=== PATIENT | female | born 1970 | race African-American/Black ===

== ENCOUNTER 2016-09-10 23:10 | Emergency (ER) | payer SELFPAY ==
[~2016-09-10] VITALS: Ht 157.5 cm; Wt 86.0 kg
[~2016-09-10 23:10] MED LIST: ASPI325T PO; BENZ1TAB PO; DEPA500T3 PO; HALO5 PO; TRAZ100 PO
[2016-09-10 23:12] VITALS: BP 124/63; PULSE 82; RESP 16; TEMP 99; O2SAT 99
[2016-09-11] MEDS ORDERED: ONDANSETRON HCL 4 MG/2 ML VIAL IVP ONE
[2016-09-11] MEDS ORDERED: SODIUM CHLORIDE 0.9% FLUSH 10 ML FLUSH IV FLUSH PRN
[2016-09-11] MEDS ORDERED: MORPHINE SULFATE 4 MG/ML INJ IV PUSH ONE
[2016-09-11 00:25] VITALS: O2SAT 97
[2016-09-11] MEDS: SODIUM CHLOR 0.9% 1000 ML INJ 1,000 ML IV SCH ×2 (00:32→03:29)
--- NOTE | 2016-09-11 00:35 | RADRPT ---
EXAM DATE/TIME: 09/11/2016 00:06 [facility] COMPARISON: No previous studies available for comparison. INDICATIONS : Low mid abdomen pain for one week. MEDICAL HISTORY : Osteoarthritis. Cervical cancer SURGICAL HISTORY : Tubal ligation. section. ENCOUNTER: Initial ACUITY: 1 week PAIN SCORE: 10/10 LOCATION: Bilateral lower quadrant FINDINGS: Supine and upright views of the abdomen were performed. The abdominal bowel gas pattern is normal. No air fluid levels are seen. Round calcifications are seen in the pelvis likely related to phleboli ths. The visualized lower lungs are clear. No evidence of free intraperitoneal gas. The osseous str uctures are unremarkable. CONCLUSION: No acute disease. Elian Garcia MD on September 11, 2016 at 0:32 Board Certified Radiologist. This report was verified electronically.
--- NOTE | 2016-09-11 00:49 | PD ---
HPI Chief Complaint: Abdominal Pain Time Seen by Provider: 23:50 Travel History International Travel<30 days: No Contact w/Intl Traveler<30days: No Traveled to known affect area: No History of Present Illness HPI 46-year-old female here for evaluation of abdominal pain, back pain, nausea, and vomiting. The patient reports that symptoms of it going on for 1 week and started with back pain. Symptoms have been constant, however have been significantly worse today. She states she has been taking 2 Aleve per day to try to alleviate her pain, however this has not helped. No diarrhea. History of section and bilateral tubal ligation. No other abdominal surgeries. Emesis is clear. She denies fevers or chills. No chest pain or dyspnea. No IVDU. PFSH Past Medical History Asthma: Yes Blood Disorders: No Bipolar Disorder: Yes Cancer: Yes (cervical) Cardiovascular Problems: No Chemotherapy: No Diabetes: No Patient Takes Glucophage: No Diminished Hearing: No Endocrine: No Genitourinary: No Immune Disorder: No Musculoskeletal: No Neurologic: Yes Psychiatric: No Reproductive: Yes (Cervical CA) Respiratory: No Immunizations Current: Yes Radiation Therapy: No Seizures: Yes ?: Not Menopausal: No : 5 Para: 5 Tubal Ligation: Yes Past Surgical History Section: Yes (X 1) Social History Alcohol Use: No Tobacco Use: Yes (1/2PPD) Substance Use: Yes (pot) Allergies-Medications (Allergen,Severity, Reaction): Coded Allergies: Penicillin (Verified Allergy, Intermediate, Itching, 09/10/16) Reported Meds & Prescriptions Reported Meds & Active Scripts Active Review of Systems Except as stated in HPI: all other systems reviewed are Neg Physical Exam Narrative GENERAL: Well-developed, well-nourished, moderate distress secondary to abdominal pain. SKIN: Focused skin assessment warm/dry. No rash. HEAD: Atraumatic. Normocephalic. EYES: Pupils equal and round. No scleral icterus. No injection or drainage. ENT: Mucous membranes pink and moist. NECK: Trachea midline. No JVD. CARDIOVASCULAR: Regular rate and rhythm. No murmur appreciated. RESPIRATORY: No accessory muscle use. Clear to auscultation. Breath sounds equal bilaterally. GASTROINTESTINAL: Abdomen soft, nondistended. Moderate diffuse tenderness without peritoneal signs. Normal bowel sounds. MUSCULOSKELETAL: No obvious deformities. No clubbing. No cyanosis. No edema. No CVA tenderness. No midline vertebral step-off or tenderness. NEUROLOGICAL: Awake and alert. No obvious cranial nerve deficits. Motor grossly within normal limits. Normal speech. PSYCHIATRIC: Appropriate mood and affect; insight and judgment normal. Data Data Last Documented VS Vital Signs Date Time Temp Pulse Resp B/P Pulse Ox O2 Delivery O2 Flow Rate FiO2 09/11/16 00:25 97 Room Air 09/10/16 23:12 99.0 82 16 124/63 Orders Beta Hcg (Quant/Titer) (09/10/16 23:54) Complete Blood Count With Diff (09/10/16 23:54) Comprehensive Metabolic Panel (09/10/16 23:54) Lipase (09/10/16 23:54) Prothrombin Time / Inr (Pt) (09/10/16 23:54) Act Partial Throm Time (Ptt) (09/10/16 23:54) Urinalysis - C+S If Indicated (09/10/16 23:54) Abdomen, Flat & Upright (09/10/16 ) Ct Abd/Pel W Iv Contrast(Rout) (09/10/16 23:54) Iv Access Insert/Monitor (09/10/16 23:54) Ecg Monitoring (09/10/16 23:54) Oximetry (09/10/16 23:54) Morphine Inj (Morphine Inj) (09/11/16 00:00) Ondansetron Inj (Zofran Inj) (09/11/16 00:00) Sodium Chlor 0.9% 1000 Ml Inj (Ns 1000 M (09/10/16 23:54) Sodium Chloride 0.9% Flush (Ns Flush) (09/11/16 00:00) Labs Laboratory Tests Test 09/11/16 09/11/16 00:15 00:20 Urine Color LIGHT-YELLOW Urine Turbidity HAZY Urine pH 5.5 Urine Specific [place] 1.010 Urine Protein NEG mg/dL Urine Glucose (UA) NEG mg/dL Urine Ketones NEG mg/dL Urine Occult Blood MOD Urine Nitrite NEG Urine Bilirubin NEG Urine Urobilinogen LESS THAN 2.0 MG/DL Urine Leukocyte Esterase NEG Urine RBC LESS THAN 1 /hpf Urine WBC 1 /hpf Urine Squamous Epithelial 3 /hpf Cells Urine Renal Epithelial Cells <1 /hpf Urine Bacteria RARE /hpf Urine Mucus FEW /lpf Microscopic Urinalysis Comment CULT NOT INDICATED White Blood Count 11.1 TH/MM3 Red Blood Count 4.38 MIL/MM3 Hemoglobin 10.1 GM/DL Hematocrit 31.3 % Mean Corpuscular Volume 71.5 FL Mean Corpuscular Hemoglobin 23.1 PG Mean Corpuscular Hemoglobin 32.4 % Concent Red Cell Distribution Width 17.0 % Platelet Count 350 TH/MM3 Mean Platelet Volume 7.7 FL Neutrophils (%) (Auto) 69.2 % Lymphocytes (%) (Auto) 22.0 % Monocytes (%) (Auto) 7.4 % Eosinophils (%) (Auto) 0.9 % Basophils (%) (Auto) 0.5 % Neutrophils # (Auto) 7.7 TH/MM3 Lymphocytes # (Auto) 2.4 TH/MM3 Monocytes # (Auto) 0.8 TH/MM3 Eosinophils # (Auto) 0.1 TH/MM3 Basophils # (Auto) 0.1 TH/MM3 CBC Comment AUTO DIFF Prothrombin Time 11.2 SEC Prothromb Time International 1.0 RATIO Ratio Activated Partial 31.5 SEC Thromboplast Time Sodium Level 140 MEQ/L Potassium Level 3.3 MEQ/L Chloride Level 107 MEQ/L Carbon Dioxide Level 26.6 MEQ/L Anion Gap 6 MEQ/L Blood Urea Nitrogen 9 MG/DL Creatinine 0.70 MG/DL Estimat Glomerular Filtration 109 ML/MIN Rate Random Glucose 88 MG/DL Calcium Level 8.6 MG/DL Total Bilirubin 0.3 MG/DL Aspartate Amino Transf 9 U/L (AST/SGOT) Alanine Aminotransferase 20 U/L (ALT/SGPT) Alkaline Phosphatase 89 U/L Total Protein 7.9 GM/DL Albumin 3.5 GM/DL Lipase 207 U/L Human Chorionic Gonadotropin, LESS THAN 1 Quant MIU/ML [facility] Medical Decision Making Medical Screen Exam Complete: Yes Emergency Medical Condition: Yes Differential Diagnosis Pancreatitis, hepatobiliary disease, nephrolithiasis, pyelonephritis, ureterolithiasis, peptic ulcer disease, bowel perforation, appendicitis, colitis , , ectopic Narrative Course Vital signs show heart rate 82, blood pressure 124/63, pulse ox 99% on room air , oral temp of 99F. CBC shows WBC 11.1, hemoglobin 10.1, hematocrit 31.3, platelets 350. CMP is remarkable for potassium 3.3, otherwise unremarkable. Lipase is 207. Beta hCG is less than 1. UA shows moderate occult blood, hazy urine, rare bacteria, few mucus, negative leukocyte esterase, negative nitrites, not suggestive of UTI. At approximately 1:00 AM at the end of my shift the patient was signed out to my PA Dk Atkins who will follow up with CT abdomen pelvis and will disposition the patient. At this time the patient is resting comfortably and is feeling much better after receiving IV morphine and IV Zofran. Her repeat abdominal exam shows mild diffuse tenderness without peritoneal signs. Eric Lockett MD Sep 11, 2016 00:49
[2016-09-11 00:55] LABS: AUTOMATED NEUTROPHIL # 7.7 TH/MM3 (1.8-7.7); BASOPHIL # 0.1 TH/MM3 (0-0.2); BASOPHIL % 0.5 % (0.0-2.0); EOSINOPHIL # 0.1 TH/MM3 (0-0.4); EOSINOPHIL % 0.9 % (0.0-4.0); HEMATOCRIT 31.3 % (35.0-46.0); LYMPHOCYTE # 2.4 TH/MM3 (1.0-4.8); MEAN CELL VOLUME 71.5 FL (80.0-100.0); MEAN CORPUSCULAR HEMOGLOBIN 23.1 PG (27.0-34.0); MEAN CORPUSCULAR HGB CONC 32.4 % (32.0-36.0); MONO % 7.4 % (0.0-8.0); NEUT % 69.2 % (16.0-70.0); PLATELET COUNT 350 TH/MM3 (150-450); RED BLOOD COUNT 4.38 MIL/MM3 (4.00-5.30); WHITE BLOOD COUNT 11.1 TH/MM3 (4.0-11.0)
[2016-09-11 01:05] VITALS: BP 133/66; PULSE 65; RESP 16; O2SAT 98
[2016-09-11 01:08] LABS: ALT (GPT) 20 U/L (10-53); ANION GAP 6 MEQ/L (5-15); AST (GOT) 9 U/L (15-37); BICARBONATE 26.6 MEQ/L (21.0-32.0); BLOOD UREA NITROGEN 9 MG/DL (7-18); CHLORIDE 107 MEQ/L (98-107); GLOMERULAR FILTRATION RATE 109 ML/MIN (>89); POTASSIUM 3.3 MEQ/L (3.5-5.1); SODIUM (NA) 140 MEQ/L (136-145)
[2016-09-11 01:10] LABS: HEMO FLAGS AUTO DIFF
[2016-09-11 01:11] LABS: APTT (PATIENT) 31.5 SEC (24.3-30.1); PROTHROMBIN TIME - PATIENT 11.2 SEC (9.8-11.6)
[2016-09-11 01:12] LABS: ALKALINE PHOSPHATASE 89 U/L (45-117); BETA HCG QUANT LESS THAN 1 MIU/ML (0-5); TOTAL BILIRUBIN ADULT 0.3 MG/DL (0.2-1.0)
[2016-09-11 01:15] LABS: BACTERIA, URINE RARE /hpf; BLOOD, URINE MOD (NEG); COMMENT (UR) CULT NOT INDICATED; CULTURE IF INDICATED CULT NOT INDICATED; GLUCOSE,URINE NEG (NEG); KETONE, URINE NEG (NEG); MUCUS URINE FEW /lpf (OCC); NITRITE,URINE NEG (NEG); PH, URINE 5.5 (5.0-8.5); RENAL EPITHELIAL CELLS <1 /hpf; SQUAMOUS EPITHELIAL CELL URINE 3 /hpf (0-5); URINE COLOR LIGHT-YELLOW (YELLW/STRAW)
[2016-09-11] MEDS ORDERED: IOHEXOL 350 MG/ML 10 ML VIAL (for RAD DIAG) IV ONE (01:34)
--- NOTE | 2016-09-11 01:52 | RADRPT ---
EXAM DATE/TIME: 09/11/2016 01:29 [facility] COMPARISON: No previous studies available for comparison. INDICATIONS : Abdominal pain. IV CONTRAST: 95 cc Omnipaque 350 (iohexol) IV ORAL CONTRAST: No oral contrast ingested. RADIATION DOSE: 14.75 CTDIvol (mGy) MEDICAL HISTORY : Seizures. Cervical and uterine cancer, Asthma SURGICAL HISTORY : Tubal ligation. ENCOUNTER: Initial ACUITY: 1 day PAIN SCALE: 6/10 LOCATION: abdomen TECHNIQUE: Volumetric scanning of the abdomen and pelvis was performed. Using automated exposure control and ad justment of the mA and/or kV according to patient size, radiation dose was kept as low as reasonably achievable to obtain optimal diagnostic quality images. FINDINGS: LOWER LUNGS: The visualized lower lungs are clear. LIVER: There is decreased density in the liver. There are several hypodensities seen in the liver measuring up to 1 cm. These are nonspecific. There is no dilation of the biliary tree. No calcified gallstones . SPLEEN: Normal size without lesion. PANCREAS: Within normal limits. KIDNEYS: Normal in size and shape. There is no mass, stone or hydronephrosis. ADRENAL GLANDS: Within normal limits. VASCULAR: There is no aortic aneurysm. BOWEL/MESENTERY: There are scattered colonic diverticula. There is mild inflammatory change at the junction between th e descending and sigmoid portions of the colon. No abscess is seen. ABDOMINAL WALL: Within normal limits. RETROPERITONEUM: There is no lymphadenopathy. BLADDER: No wall thickening or mass. REPRODUCTIVE: There are several uterine masses measuring up to 6 cm likely related to leiomyomas. There is a comple x lesion with fat density seen at the left adnexa measuring 2.4 cm likely representing a dermoid. INGUINAL: There is no lymphadenopathy or hernia. MUSCULOSKELETAL: Within normal limits for patient age. CONCLUSION: 1. Mild acute inflammatory change around the colon at the junction between the descending and sigmoid portions of the colon with scattered diverticula consistent with diverticulitis. 2. Multiple uterine masses likely representing leiomyomas. 3. 2.4 cm complex left adnexal mass likely related to a dermoid given the fat density. 4. Hepatic steatosis with multiple small masses. These are nonspecific but statistically, they likely represent cysts or hemangiomas. Elian Garcia MD on September 11, 2016 at 1:43 Board Certified Radiologist. This report was verified electronically.
[2016-09-11 01:59] LABS: SCAN/DIFF AUTO DIFF CONFIRMED
--- NOTE | 2016-09-11 02:03 | PD ---
Physical Exam Time Seen by Provider: 01:55 Data Data Last Documented VS Vital Signs Date Time Temp Pulse Resp B/P Pulse Ox O2 Delivery O2 Flow Rate FiO2 09/11/16 00:25 97 Room Air 09/10/16 23:12 99.0 82 16 124/63 Orders Beta Hcg (Quant/Titer) (09/10/16 23:54) Complete Blood Count With Diff (09/10/16 23:54) Comprehensive Metabolic Panel (09/10/16 23:54) Lipase (09/10/16 23:54) Prothrombin Time / Inr (Pt) (09/10/16 23:54) Act Partial Throm Time (Ptt) (09/10/16 23:54) Urinalysis - C+S If Indicated (09/10/16 23:54) Abdomen, Flat & Upright (09/10/16 ) Ct Abd/Pel W Iv Contrast(Rout) (09/10/16 23:54) Iv Access Insert/Monitor (09/10/16 23:54) Ecg Monitoring (09/10/16 23:54) Oximetry (09/10/16 23:54) Morphine Inj (Morphine Inj) (09/11/16 00:00) Ondansetron Inj (Zofran Inj) (09/11/16 00:00) Sodium Chlor 0.9% 1000 Ml Inj (Ns 1000 M (09/10/16 23:54) Sodium Chloride 0.9% Flush (Ns Flush) (09/11/16 00:00) Iohexol 350 Inj (Omnipaque 350 Inj) (09/11/16 01:34) Labs Laboratory Tests Test 09/11/16 09/11/16 00:15 00:20 Urine Color LIGHT-YELLOW Urine Turbidity HAZY Urine pH 5.5 Urine Specific [place] 1.010 Urine Protein NEG mg/dL Urine Glucose (UA) NEG mg/dL Urine Ketones NEG mg/dL Urine Occult Blood MOD Urine Nitrite NEG Urine Bilirubin NEG Urine Urobilinogen LESS THAN 2.0 MG/DL Urine Leukocyte Esterase NEG Urine RBC LESS THAN 1 /hpf Urine WBC 1 /hpf Urine Squamous Epithelial 3 /hpf Cells Urine Renal Epithelial Cells <1 /hpf Urine Bacteria RARE /hpf Urine Mucus FEW /lpf Microscopic Urinalysis Comment CULT NOT INDICATED White Blood Count 11.1 TH/MM3 Red Blood Count 4.38 MIL/MM3 Hemoglobin 10.1 GM/DL Hematocrit 31.3 % Mean Corpuscular Volume 71.5 FL Mean Corpuscular Hemoglobin 23.1 PG Mean Corpuscular Hemoglobin 32.4 % Concent Red Cell Distribution Width 17.0 % Platelet Count 350 TH/MM3 Mean Platelet Volume 7.7 FL Neutrophils (%) (Auto) 69.2 % Lymphocytes (%) (Auto) 22.0 % Monocytes (%) (Auto) 7.4 % Eosinophils (%) (Auto) 0.9 % Basophils (%) (Auto) 0.5 % Neutrophils # (Auto) 7.7 TH/MM3 Lymphocytes # (Auto) 2.4 TH/MM3 Monocytes # (Auto) 0.8 TH/MM3 Eosinophils # (Auto) 0.1 TH/MM3 Basophils # (Auto) 0.1 TH/MM3 CBC Comment AUTO DIFF Differential Comment AUTO DIFF CONFIRMED Prothrombin Time 11.2 SEC Prothromb Time International 1.0 RATIO Ratio Activated Partial 31.5 SEC Thromboplast Time Sodium Level 140 MEQ/L Potassium Level 3.3 MEQ/L Chloride Level 107 MEQ/L Carbon Dioxide Level 26.6 MEQ/L Anion Gap 6 MEQ/L Blood Urea Nitrogen 9 MG/DL Creatinine 0.70 MG/DL Estimat Glomerular Filtration 109 ML/MIN Rate Random Glucose 88 MG/DL Calcium Level 8.6 MG/DL Total Bilirubin 0.3 MG/DL Aspartate Amino Transf 9 U/L (AST/SGOT) Alanine Aminotransferase 20 U/L (ALT/SGPT) Alkaline Phosphatase 89 U/L Total Protein 7.9 GM/DL Albumin 3.5 GM/DL Lipase 207 U/L Human Chorionic Gonadotropin, LESS THAN 1 Quant MIU/ML [facility] Medical Record Reviewed: Yes Supervised Visit with KHADIJAH: No Narrative Course I assumed care of this patient pending imaging studies and lab work. Please see previous provider's notes for complete history of present illness. Briefly this is a 46-year-old female who has had abdominal pain and nausea for one week. On examination she has generalized mild tenderness to palpation without guarding. She received morphine prior to my examination and this helped with her pain significantly. CT of the abdomen reveals mild diverticulitis. White blood cell count is mildly elevated 11.1. Potassium mildly low. Otherwise her lab work is essentially unremarkable. She is afebrile, not tachycardic, the plan would be to treat the patient had an outpatient with oral ciprofloxacin and Flagyl. She' ll be given Zofran for nausea and Lortab for pain. Discussed signs and symptoms that would warrant returning to the emergency room. She is stable for discharge. She was given a dose of IV Cipro and Flagyl here. Diagnosis Primary Impression: Diverticulitis Qualified Code: K57.92 - Diverticulitis of intestine without perforation or abscess without bleeding, unspecified part of intestinal tract Additional Instruction: Medication as prescribed. Stay well hydrated well-nourished. Follow-up closely with primary care and return for any emergent medical conditions. Med/Other Pt SpecificInfo: Prescription(s) given Scripts Ondansetron (Zofran)4 Mg Tab4 Mg PO Q6HR PRN (NAUSEA OR VOMITING) #20 TAB Ref 0 Prov:Jayjay Muñiz MD 09/11/16 Metronidazole (Flagyl)500 Mg [id number] Mg PO QID 10 Days Ref 0 Prov:Jayjay Muñiz MD 09/11/16 Ciprofloxacin 500 Mg [id number] Mg PO BID 10 Days Ref 0 Prov:Jayjay Muñiz MD 09/11/16 Hydrocodone-Acetaminophen (Lortab)5-325 Mg Tab1 Tab PO Q6H PRN (PAIN) #15 TAB Ref 0 Prov:Jayjay Muñiz MD 09/11/16 Disposition: 01 DISCHARGE HOME Condition: Stable Dk Atkins Sep 11, 2016 02:03
[2016-09-11] MEDS ORDERED: HYDR-3533 PO (02:04)
[2016-09-11] MEDS ORDERED: METR-1 PO (02:05)
[2016-09-11] MEDS ORDERED: ZOFR4TAB PO (02:05)
[2016-09-11] MEDS ORDERED: CIPR500T2 PO (02:05)
[2016-09-11] MEDS ORDERED: metroNIDAZOLE 500 MG INJ 100 ML IV ONE (02:15)
[2016-09-11] MEDS ORDERED: POTASSIUM CHLORIDE 20 MEQ CONTROLLED RELEASE TAB PO ONE (02:15)
[2016-09-11] MEDS ORDERED: CIPROFLOXACIN 400 MG PREMIX 200 ML IV ONE (02:15)
== END 2016-09-11 05:01 | disposition home or self-care (01) ==
LOC: NEPD 23:10 → NEPE 09-11 05:01
DX: K57.92 Diverticulitis of intestine, part unspecified, without perforation or abscess without bleeding (principal); M54.9 Dorsalgia, unspecified; R11.2 Nausea with vomiting, unspecified; F17.200 Nicotine dependence, unspecified, uncomplicated; Z87.09 Personal history of other diseases of the respiratory system; Z86.59 Personal history of other mental and behavioral disorders; Z85.41 Personal history of malignant neoplasm of cervix uteri; Z86.69 Personal history of other diseases of the nervous system and sense organs
CPT/HCPCS: 74020; 74177; 80053; 81001; 83690; 84702; 85025; 85610; 85730; 96374; 96375; 99284; J0744; J2270; J2405; J7030; Q9967

== ENCOUNTER 2017-06-16 16:52 | Observation (INO) | payer SELFPAY ==
[~2017-06-16] VITALS: Ht 167.6 cm; Wt 90.0 kg
[~2017-06-16 16:52] MED LIST changes: -ASPI325T PO; -BENZ1TAB PO; +CIPR500T2 PO; -DEPA500T3 PO; -HALO5 PO; +HYDR-3533 PO; +METR-1 PO; -TRAZ100 PO; +ZOFR4TAB PO
[2017-06-16] MEDS ORDERED: SODIUM CHLORIDE 0.9% FLUSH 10 ML FLUSH IVF PRN (17:00)
--- NOTE | 2017-06-16 17:01 | PD ---
HPI Chief Complaint: Neuro Symptoms/ Deficits Time Seen by Provider: 17:00 Travel History International Travel<30 days: No Contact w/Intl Traveler<30days: No Traveled to known affect area: No History of Present Illness HPI 46-year-old female came to the emergency room brought in by EMS as a stroke alert. However this was told upon EMS arrival to the emergency room. Patient was complaining of left side upper extremity and lower extremity pain and moving because of the pain. She also was stammering. She was holding her arm flexed and flinching upon touching it when EMS tried to move her from the stretcher to the hospital stretcher. Patient does have significant psych history. Vital signs were stable. Patient is not on any blood thinners. [facility] Past Medical History Narrative Medical List of her past medical, surgical, social and family history is reviewed from the nursing note. Asthma: Yes Blood Disorders: No Bipolar Disorder: Yes Cancer: Yes (cervical) Cardiovascular Problems: No Chemotherapy: No Diabetes: No Diminished Hearing: No Endocrine: No Genitourinary: No Immune Disorder: No Musculoskeletal: No Neurologic: Yes Psychiatric: No Reproductive: Yes (Cervical CA) Respiratory: No Immunizations Current: Yes Radiation Therapy: No Seizures: Yes Menopausal: No : 5 Para: 5 Tubal Ligation: Yes Past Surgical History Section: Yes (X 1) Social History Alcohol Use: No Tobacco Use: Yes (1/2PPD) Substance Use: Yes (pot) Allergies-Medications (Allergen,Severity, Reaction): Coded Allergies: penicillin G (Unverified Allergy, Intermediate, Itching, 01/18/17) Comments List of allergies reviewed from the nursing note. Reported Meds & Prescriptions Reported Meds & Active Scripts Active Reported Buspirone (Buspirone HCl) 5 Mg Tab 5 Mg PO BID Narrative Medication List of her home medications reviewed from the nursing note. Review of Systems Except as stated in HPI: all other systems reviewed are Neg Musculoskeletal: Positive: Pain Physical Exam Narrative GENERAL: Awake, alert, anxious, moderate distress SKIN: Focused skin assessment warm/dry. HEAD: Atraumatic. Normocephalic. EYES: Pupils equal and round. No scleral icterus. No injection or drainage. ENT: No nasal bleeding or discharge. Mucous membranes pink and moist. NECK: Trachea midline. No JVD. CARDIOVASCULAR: Regular rate and rhythm. No murmur appreciated. RESPIRATORY: No accessory muscle use. Clear to auscultation. Breath sounds equal bilaterally. GASTROINTESTINAL: Abdomen soft, non-tender, nondistended. Hepatic and splenic margins not palpable. MUSCULOSKELETAL: No obvious deformities. No clubbing. No cyanosis. No edema. NEUROLOGICAL: Awake and alert. No obvious cranial nerve deficits. Patient refuses to move her left upper and lower extremity except for some little jerky motions. Good tone. Patient is complaining of pain in the left upper extremity upon movement. She has a stammering speech PSYCHIATRIC: Appropriate mood and affect; insight and judgment normal. Data Data Last Documented VS Vital Signs Date Time Temp Pulse Resp B/P (MAP) Pulse Ox O2 Delivery O2 Flow Rate FiO2 06/16/17 17:13 70 22 100 Room Air 06/16/17 17:12 06/16/17 17:10 98.5 Orders Orders Electrocardiogram (06/16/17 17:00) Prothrombin Time / Inr (Pt) (06/16/17 17:00) Complete Blood Count With Diff (06/16/17 17:00) Basic Metabolic Panel (Bmp) (06/16/17 17:00) Creatine Kinase (Cpk) (06/16/17 17:00) Drug Screen, Random Urine (06/16/17 17:00) Troponin I (06/16/17 17:00) Urinalysis - C+S If Indicated (06/16/17 17:00) Ct Brain W/O Iv Contrast(Rout) (06/16/17 17:00) Chest, Single Ap (06/16/17 17:00) Ecg Monitoring (06/16/17 17:00) Iv Access Insert/Monitor (06/16/17 17:00) Oximetry (06/16/17 17:00) Sodium Chloride 0.9% Flush (Ns Flush) (06/16/17 17:00) Lorazepam Inj (Ativan Inj) (06/16/17 17:15) Mri Brain W/O Contrast (06/16/17 ) Mra Brain W/O Contrast (Cow) (06/16/17 ) Mri C Spine W/O Contrast (06/16/17 ) Urine Culture (06/16/17 18:39) Alprazolam (Xanax) (06/16/17 19:45) Admit Order (Ed Use Only) (06/16/17 19:43) Labs Laboratory Tests Test 06/16/17 17:05 06/16/17 18:39 White Blood Count 9.8 TH/MM3 Red Blood Count 4.21 MIL/MM3 Hemoglobin 10.2 GM/DL Hematocrit 31.7 % Mean Corpuscular Volume 75.3 FL Mean Corpuscular Hemoglobin 24.3 PG Mean Corpuscular Hemoglobin Concent 32.3 % Red Cell Distribution Width 17.8 % Platelet Count 427 TH/MM3 Mean Platelet Volume 7.5 FL Neutrophils (%) (Auto) 53.6 % Lymphocytes (%) (Auto) 27.8 % Monocytes (%) (Auto) 16.3 % Eosinophils (%) (Auto) 1.8 % Basophils (%) (Auto) 0.5 % Neutrophils # (Auto) 5.2 TH/MM3 Lymphocytes # (Auto) 2.7 TH/MM3 Monocytes # (Auto) 1.6 TH/MM3 Eosinophils # (Auto) 0.2 TH/MM3 Basophils # (Auto) 0.1 TH/MM3 CBC Comment DIFF FINAL Differential Comment Prothrombin Time 10.6 SEC Prothromb Time International Ratio 1.0 RATIO Blood Urea Nitrogen 10 MG/DL Creatinine 0.78 MG/DL Random Glucose 78 MG/DL Calcium Level 8.2 MG/DL Sodium Level 140 MEQ/L Potassium Level 3.8 MEQ/L Chloride Level 109 MEQ/L Carbon Dioxide Level 24.3 MEQ/L Anion Gap 7 MEQ/L Estimat Glomerular Filtration Rate 97 ML/MIN Hemoglobin A1c 5.7 % Total Creatine Kinase 106 U/L Troponin I LESS THAN 0.02 NG/ML Urine Color YELLOW Urine Turbidity HAZY Urine pH 5.5 Urine Specific [place] 1.015 Urine Protein NEG mg/dL Urine Glucose (UA) NEG mg/dL Urine Ketones NEG mg/dL Urine Occult Blood TRACE Urine Nitrite NEG Urine Bilirubin NEG Urine Urobilinogen LESS THAN 2.0 MG/DL Urine Leukocyte Esterase NEG Urine RBC LESS THAN 1 /hpf Urine WBC 1 /hpf Urine Squamous Epithelial Cells 5 /hpf Urine Bacteria RARE /hpf Urine Mucus FEW /lpf Microscopic Urinalysis Comment CATH-CULTURE IND Urine Opiates Screen NEG Urine Barbiturates Screen NEG Urine Amphetamines Screen NEG Urine Benzodiazepines Screen NEG Urine Cocaine Screen NEG Urine Cannabinoids Screen POS MDM Medical Decision Making Medical Screen Exam Complete: Yes Emergency Medical Condition: Yes Medical Record Reviewed: Yes Interpretation(s) Twelve-lead EKG was reviewed by me. Normal sinus rhythm, normal axis, nonspecific ST-T wave changes. Heart rate of 64 bpm. Differential Diagnosis TIA, psychosomatic disorder Narrative Course 7:26 PM case was discussed with the neurologist Dr. Obando. I explained to him the reason I have not called a stroke alert since patient has good tone and her issues seem more psychological. Patient was given 1 mg of Ativan and soon after which I was told by the nurse that she was moving all 4 extremities freely. She had something similar a few months ago where she was complaining of right-sided weakness. MRI of the brain was negative. He wanted an MRI and MRA of the brain and cervical spine done today. This has been ordered. Her CT scan of the head and blood work is within normal limits. Her urine drug screen is pending. Dr. Obando would prefer the patient to be admitted and he would consult. Procedures EKG Prior to Arrival: No Physician Communication Physician Communication Dr. Obando Diagnosis Primary Impression: TIA (transient ischemic attack) Qualified Codes: G45.9 - Transient cerebral ischemic attack, unspecified Additional Impression: possible psychosomatic disorder Admitting Information Admitting Physician Requests: Observation Scripts Ibuprofen (Ibuprofen) 400 Mg Tab 400 MG PO Q6H Y for MIGRAINE HEADACHE, #21 TAB 0 Refills Prov: Keysha Manning PA-C 06/17/17 Berry Wasserman MD Jun 16, 2017 17:01
[2017-06-16 17:10] VITALS: BP 152/62; PULSE 72; RESP 18; TEMP 98.5; O2SAT 99
[2017-06-16 17:12] VITALS: RESP 18; O2SAT 100
[2017-06-16] MEDS ORDERED: LORazepam 2 MG/ML VIAL IV PUSH ONE (17:15)
[2017-06-16 17:30] LABS: AUTOMATED NEUTROPHIL # 5.2 TH/MM3 (1.8-7.7); BASOPHIL # 0.1 TH/MM3 (0-0.2); BASOPHIL % 0.5 % (0.0-2.0); EOSINOPHIL # 0.2 TH/MM3 (0-0.4); EOSINOPHIL % 1.8 % (0.0-4.0); HEMATOCRIT 31.7 % (35.0-46.0); HEMOGLOBIN 10.2 GM/DL (11.6-15.3); LYMPH % 27.8 % (9.0-44.0); LYMPHOCYTE # 2.7 TH/MM3 (1.0-4.8); MEAN CELL VOLUME 75.3 FL (80.0-100.0); MEAN CORPUSCULAR HEMOGLOBIN 24.3 PG (27.0-34.0); MEAN CORPUSCULAR HGB CONC 32.3 % (32.0-36.0); MEAN PLATELET VOLUME 7.5 FL (7.0-11.0); MONO % 16.3 % (0.0-8.0); MONOCYTE # 1.6 TH/MM3 (0-0.9); NEUT % 53.6 % (16.0-70.0); PLATELET COUNT 427 TH/MM3 (150-450); RED BLOOD COUNT 4.21 MIL/MM3 (4.00-5.30); RED CELL DISTRIBUTION WIDTH 17.8 % (11.6-17.2); WHITE BLOOD COUNT 9.8 TH/MM3 (4.0-11.0)
--- NOTE | 2017-06-16 17:36 | RADRPT ---
EXAM DATE/TIME: 06/16/2017 17:15 [facility] COMPARISON: No previous studies available for comparison. INDICATIONS : Shortness of breath. MEDICAL HISTORY : Seizures. Cervical and uterine cancer, Asthma SURGICAL HISTORY : Tubal ligation. ENCOUNTER: Initial ACUITY: 1 day PAIN SCORE: 0/10 LOCATION: Bilateral chest FINDINGS: A single view of the chest demonstrates the lungs to be symmetrically aerated without evidence of mas s, infiltrate or effusion. The cardiomediastinal contours are unremarkable. Osseous structures are intact. CONCLUSION: No acute disease. Kailash Borges MD on June 16, 2017 at 17:33 Board Certified Radiologist. This report was verified electronically.
--- NOTE | 2017-06-16 17:38 | RADRPT ---
EXAM DATE/TIME: 06/16/2017 17:14 [facility] COMPARISON: CT BRAIN W/O CONTRAST, March 11, 2016, 14:46. INDICATIONS : Right sided facial droop. RADIATION DOSE: 56.78 CTDIvol (mGy) MEDICAL HISTORY : Seizures. Umana's palsy, cervical cancer. SURGICAL HISTORY : Tubal ligation. ENCOUNTER: Initial ACUITY: 1 day PAIN SCALE: 0/10 LOCATION: cranial TECHNIQUE: Multiple contiguous axial images were obtained of the head. Using automated exposure control and adj ustment of the mA and/or kV according to patient size, radiation dose was kept as low as reasonably a chievable to obtain optimal diagnostic quality images. DICOM format image data is available electro nically for review and comparison. FINDINGS: CEREBRUM: The ventricles are normal for age. No evidence of midline shift, mass lesion, hemorrhage or acute in farction. No extra-axial fluid collections are seen. POSTERIOR FOSSA: The cerebellum and brainstem are intact. The 4th ventricle is midline. The cerebellopontine angle i s unremarkable. EXTRACRANIAL: The visualized portion of the orbits is intact. SKULL: The calvaria is intact. No evidence of skull fracture. CONCLUSION: Negative noncontrast head CT with no evidence of hemorrhage or acute infarction. Kailash Borges MD on June 16, 2017 at 17:35 Board Certified Radiologist. This report was verified electronically.
[2017-06-16 17:44] LABS: PROTHROMBIN TIME - PATIENT 10.6 SEC (9.8-11.6)
[2017-06-16 17:48] LABS: BICARBONATE 24.3 MEQ/L (21.0-32.0); BLOOD UREA NITROGEN 10 MG/DL (7-18); CALCIUM 8.2 MG/DL (8.5-10.1); CHLORIDE 109 MEQ/L (98-107); CREATININE 0.78 MG/DL (0.50-1.00); GLOMERULAR FILTRATION RATE 97 ML/MIN (>89); GLUCOSE,RANDOM 78 MG/DL (74-106); SODIUM (NA) 140 MEQ/L (136-145)
[2017-06-16 17:50] LABS: TROPONIN I LESS THAN 0.02 NG/ML (0.02-0.05)
[2017-06-16] MEDS ORDERED: BUSP5TAB PO (19:00)
[2017-06-16 19:04] LABS: BACTERIA, URINE RARE /hpf; BILIRUBIN, URINE NEG (NEG); BLOOD, URINE TRACE (NEG); GLUCOSE,URINE NEG (NEG); KETONE, URINE NEG (NEG); MUCUS URINE FEW /lpf (OCC); NITRITE,URINE NEG (NEG); PH, URINE 5.5 (5.0-8.5); SQUAMOUS EPITHELIAL CELL URINE 5 /hpf (0-5); URINE COLOR YELLOW (YELLW/STRAW); URINE LEUKOCYTE ESTERASE NEG (NEG)
[2017-06-16] MEDS ORDERED: ALPRAZolam 0.5 MG TAB PO ONE (19:45)
[2017-06-16] MEDS ORDERED: GLUCAGON 1 MG/ML VIAL OTHER PRN (19:45)
[2017-06-16] MEDS ORDERED: DEXTROSE 50% IN WATER 50 ML VIAL(D50) IV PUSH PRN (19:45)
[2017-06-16] MEDS ORDERED: SODIUM CHLORIDE 0.9% FLUSH 10 ML FLUSH IV FLUSH PRN (19:45)
--- NOTE | 2017-06-16 20:43 | RADRPT ---
EXAM DATE/TIME: 06/16/2017 20:01 [facility] COMPARISON: MRI BRAIN W/O CONTRAST, June 16, 2017, 20:01. MRA BRAIN W/O CONTRAST, March 11, 2016, 17:01. INDICATIONS : CVA. MEDICAL HISTORY : Seizures. Cervical cancer. Uterine cancer. SURGICAL HISTORY : section. Tubal ligation. Cervix. ENCOUNTER: Subsequent ACUITY: 1 day PAIN SCORE: 3/10 LOCATION: cranial Please note a normal MRA of the brain does not entirely exclude the possibility of a small aneurysm, nor the possibility of distal intracranial vessel disease. TECHNIQUE: 3D time of flight MRA was performed. Source images, multiplanar STS MIP, and 3D volume MIP reconstru ctions were reviewed. FINDINGS: There is excellent visualization of the major intracranial arteries out to the second-order branch ve ssels. There is no evidence for aneurysm, vessel truncation or stenosis, and no evidence for vascula r malformation. CONCLUSION: Normal MRA of the brain. Elian Monroy MD on June 16, 2017 at 20:40 Board Certified Radiologist. This report was verified electronically.
--- NOTE | 2017-06-16 20:44 | RADRPT ---
EXAM DATE/TIME: 06/16/2017 20:01 [facility] COMPARISON: MRI BRAIN W/O CONTRAST, March 11, 2016, 17:01. INDICATIONS : CVA. Seizures. MEDICAL HISTORY : Seizures. Cervical cancer. Uterine cancer. SURGICAL HISTORY : section. Tubal ligation. Cervix. ENCOUNTER: Initial ACUITY: 1 day PAIN SCORE: 0/10 LOCATION: Head. TECHNIQUE: Multiplanar, multisequence MRI of the brain was performed without contrast. FINDINGS: CEREBRUM: The ventricles are normal for age. No evidence of midline shift, mass lesion, hemorrhage or acute in farction. No extraaxial fluid collections are seen. The pituitary gland and suprasellar cistern are normal in configuration. WHITE MATTER: No significant signal abnormalities are seen in the white matter. POSTERIOR FOSSA: The cerebellum and brainstem are intact. The 4th ventricle is midline. The cerebellopontine angle is unremarkable. The cerebellar tonsils are normal in position. DIFFUSION IMAGING: No focal areas of restricted diffusion are seen. No evidence of acute infarction. EXTRACRANIAL: The visualized portions of the orbits and paranasal sinuses are unremarkable. CONCLUSION: Normal noncontrast MRI of the brain. Elian Monroy MD on June 16, 2017 at 20:41 Board Certified Radiologist. This report was verified electronically.
[2017-06-16 20:57] VITALS: BP 92/65; PULSE 64; RESP 20; TEMP 98.2; O2SAT 99
--- NOTE | 2017-06-16 20:58 | RADRPT ---
EXAM DATE/TIME: 06/16/2017 20:01 [facility] COMPARISON: No previous studies available for comparison. INDICATIONS : Radiculopathy. MEDICAL HISTORY : Seizures. Cervical cancer. Uterine cancer. SURGICAL HISTORY : section. Tubal ligation. Cervix. ENCOUNTER: Subsequent ACUITY: 1 day PAIN SCORE: 3/10 LOCATION: neck TECHNIQUE: Multiplanar, multisequence MRI examination of the cervical spine was performed. FINDINGS: VERTEBRAE: Normal vertebral body height. Homogeneous marrow signal. ALIGNMENT: No evidence of subluxation. CORD: Normal configuration and signal. POST FOSSA: The cerebellar tonsils are normal in position. C2-C3: The thecal sac has a normal configuration. There is no evidence of disc herniation or spinal canal s tenosis. The neural foramina are patent bilaterally. C3-C4: The thecal sac has a normal configuration. There is no evidence of disc herniation or spinal canal s tenosis. The neural foramina are patent bilaterally. C4-C5: The thecal sac has a normal configuration. There is no evidence of disc herniation or spinal canal s tenosis. The neural foramina are patent bilaterally. C5-C6: The thecal sac has a normal configuration. There is no evidence of disc herniation or spinal canal s tenosis. The neural foramina are patent bilaterally. C6-C7: The thecal sac has a normal configuration. There is no evidence of disc herniation or spinal canal s tenosis. The neural foramina are patent bilaterally. C7-T1: The thecal sac has a normal configuration. There is no evidence of disc herniation or spinal canal s tenosis. The neural foramina are patent bilaterally. CONCLUSION: Normal MRI of the cervical spine. Elian Monroy MD on June 16, 2017 at 20:55 Board Certified Radiologist. This report was verified electronically.
[2017-06-16] MEDS: SODIUM CHLORIDE 0.9% FLUSH 10 ML FLUSH IV FLUSH SCH (21:00)
[2017-06-17] VITALS (8 sets, daily range): BP systolic 95–109; BP diastolic 55–61; PULSE 61–72; RESP 18; TEMP 97–98.2; O2SAT 97–99
--- NOTE | 2017-06-17 05:11 | HHI.HP ---
HPI Service [facility] Primary Care Physician Unknown Admission Diagnosis TIA Diagnoses: Travel History International Travel<30 Days: No Contact w/Intl Traveler <30 Da: No Traveled to Known Affected Are: No History of Present Illness History from patient, ER physician communication, and review of medical records. Patient reported that about 3 days ago, she was having severe headaches. She reports the headaches and wants to the left side of her face and then the left arm pain. She reports she was having trouble speaking "when my head really hurt" She states that the last time this happened it was on the right side. She is actually referring to her previous hospitalization events. She reports she then told her mom about this who told her to call 911. Patient is somewhat of a poor historian. She claims that she is also having trouble speaking. However when asked whether she has trouble finding words versus an understanding words versus pronouncing words, she is not able to tell you the answer. She is actually noted to have her face grimaced on her right side with her eyebrows traced. She refers to that as her face drooping. She was also speaking with speech that is more consistent of forceful pronunciation. However it is worth noting that during the interview, when distracted, her speech became normal and her face grimaced or frown was gone. As per ER report, ambulance personnel brought patient as a stroke alert. Review of Systems Except as stated in HPI: all other systems reviewed are Neg Past Family Social History Past Medical History asthma cervical cancer - s/p surgery, no chemo no radiation anxiety/depression hospitalization in 03/21 with similar symptoms except with right sided symptoms - workup negative denies htn/dm/cad/chf/afib/copd/kidney issues/blood clots/thyroid issues Past Surgical History cervical cancer surgery x 2 c section Allergies: Coded Allergies: penicillin G (Unverified Allergy, Intermediate, Itching, 01/18/17) Family History mom- dm, htn Social History 6- 7 cigarrttes a day marijuana occasionally Physical Exam Vital Signs Vital Signs Date Time Temp Pulse Resp B/P (MAP) Pulse Ox O2 Delivery O2 Flow Rate FiO2 1/12/18 01:12 98.1 72 18 95/59 (71) 98 06/16/17 20:57 98.2 64 20 92/65 (74) 99 06/16/17 20:51 06/16/17 17:13 70 22 100 Room Air 06/16/17 17:12 18 100 Room Air 06/16/17 17:10 98.5 72 18 152/62 (92) 99 Room Air Physical Exam GENERAL: This is a well-nourished, well-developed patient, in no apparent distress. SKIN: No rashes, ecchymoses or lesions. Cool and dry. HEAD: Atraumatic. Normocephalic. No temporal or scalp tenderness. EYES: No scleral icterus. No injection or drainage. ENT: Nose without bleeding, purulent drainage or septal hematoma. Airway patent. NECK: Trachea midline. No JVD . Supple, nontender, no meningeal signs. CARDIOVASCULAR: Regular rate and rhythm without murmurs, gallops, or rubs. RESPIRATORY: Clear to auscultation. Breath sounds equal bilaterally. No wheezes , rales, or rhonchi. GASTROINTESTINAL: Abdomen soft, non-tender, nondistended. No guarding. MUSCULOSKELETAL: Extremities without clubbing, cyanosis, or edema. No calf tenderness. NEUROLOGICAL: Awake and alert. Cranial nerves II through XII intact. Motor and sensory grossly within normal limits. Normal speech. Laboratory Laboratory Tests Test 06/16/17 17:05 06/16/17 18:39 White Blood Count 9.8 Red Blood Count 4.21 Hemoglobin 10.2 Hematocrit 31.7 Mean Corpuscular Volume 75.3 Mean Corpuscular Hemoglobin 24.3 Mean Corpuscular Hemoglobin Concent 32.3 Red Cell Distribution Width 17.8 Platelet Count 427 Mean Platelet Volume 7.5 Neutrophils (%) (Auto) 53.6 Lymphocytes (%) (Auto) 27.8 Monocytes (%) (Auto) 16.3 Eosinophils (%) (Auto) 1.8 Basophils (%) (Auto) 0.5 Neutrophils # (Auto) 5.2 Lymphocytes # (Auto) 2.7 Monocytes # (Auto) 1.6 Eosinophils # (Auto) 0.2 Basophils # (Auto) 0.1 CBC Comment DIFF FINAL Differential Comment Prothrombin Time 10.6 Prothromb Time International Ratio 1.0 Blood Urea Nitrogen 10 Creatinine 0.78 Random Glucose 78 Calcium Level 8.2 Sodium Level 140 Potassium Level 3.8 Chloride Level 109 Carbon Dioxide Level 24.3 Anion Gap 7 Estimat Glomerular Filtration Rate 97 Total Creatine Kinase 106 Troponin I LESS THAN 0.02 Urine Color YELLOW Urine Turbidity HAZY Urine pH 5.5 Urine Specific [place] 1.015 Urine Protein NEG Urine Glucose (UA) NEG Urine Ketones NEG Urine Occult Blood TRACE Urine Nitrite NEG Urine Bilirubin NEG Urine Urobilinogen LESS THAN 2.0 Urine Leukocyte Esterase NEG Urine RBC LESS THAN 1 Urine WBC 1 Urine Squamous Epithelial Cells 5 Urine Bacteria RARE Urine Mucus FEW Microscopic Urinalysis Comment CATH-CULTURE IND Urine Opiates Screen NEG Urine Barbiturates Screen NEG Urine Amphetamines Screen NEG Urine Benzodiazepines Screen NEG Urine Cocaine Screen NEG Urine Cannabinoids Screen POS Date/Time Source Procedure Growth Status 06/16/17 18:39 Urine Catheterized Urine Urine Culture Pending Received Result Diagram: 06/16/17 1705 06/16/17 1705 Imaging Last [address] 06/16/17 1700 Signed Impressions: Service Date/Time: June 17:14 - CONCLUSION: Negative noncontrast head CT with no evidence of hemorrhage or acute infarction. Kailash Borges MD Chest X-Ray 06/16/17 1700 Signed Impressions: Service Date/Time: June 17:15 - CONCLUSION: No acute disease. Kailash Borges MD Head Magnetic Resonance Angiography 06/16/17 0000 Signed Impressions: Service Date/Time: June 20:01 - CONCLUSION: Normal MRA of the brain. Elian Monroy MD Cervical Spine MRI 06/16/17 0000 Signed Impressions: Service Date/Time: June 20:01 - CONCLUSION: Normal MRI of the cervical spine. Elian Monroy MD Brain MRI 06/16/17 0000 Signed Impressions: Service Date/Time: June 20:01 - CONCLUSION: Normal noncontrast MRI of the brain. MD Og Lara VTE Risk Assessment Caprini VTE Risk Assessment: Mod/High Risk (score >= 2) Caprini Risk Assessment Model Point Value = 1 Point Value = 2 Point Value = 3 Point Value = 5 Age 41-60 Minor surgery BMI > 25 kg/m2 Swollen legs Varicose veins or History of unexplained or recurrent spontaneous Oral contraceptives or hormone replacement Sepsis (< 1 month) Serious lung disease, including pneumonia (< 1 month) Abnormal pulmonary function Acute myocardial infarction Congestive heart failure (< 1 month) History of inflammatory bowel disease Medical patient at bed rest Age 61-74 Arthroscopic surgery Major open surgery (> 45 min) Laparoscopic surgery (> 45 min) Malignancy Confined to bed (> 72 hours) Immobilizing plaster cast Central venous access Age >= 75 History of VTE Family history of VTE Factor V Leiden Prothrombin [id number] Lupus anticoagulant Anticardiolipin antibodies Elevated serum homocysteine Heparin-induced thrombocytopenia Other congenital or acquired thrombophilia Stroke (< 1 month) Elective arthroplasty Hip, pelvis, or leg fracture Acute spinal cord injury (< 1 month) Prophylaxis Regimen Total Risk Factor Score Risk Level Prophylaxis Regimen 0-1 Low Early ambulation 2 Moderate Order ONE of the following: *Sequential Compression Device (SCD) *Heparin 5000 units SQ BID 3-4 Higher Order ONE of the following medications: *Heparin 5000 units SQ TID *Enoxaparin/Lovenox 40 mg SQ daily (WT < 150 kg, CrCl > 30 mL/min) *Enoxaparin/Lovenox 30 mg SQ daily (WT < 150 kg, CrCl > 10-29 mL/min) *Enoxaparin/Lovenox 30 mg SQ BID (WT < 150 kg, CrCl > 30 mL/min) AND/OR *Sequential Compression Device (SCD) 5 or more Highest Order ONE of the following medications: *Heparin 5000 units SQ TID (Preferred with Epidurals) *Enoxaparin/Lovenox 40 mg SQ daily (WT < 150 kg, CrCl > 30 mL/min) *Enoxaparin/Lovenox 30 mg SQ daily (WT < 150 kg, CrCl > 10-29 mL/min) *Enoxaparin/Lovenox 30 mg SQ BID (WT < 150 kg, CrCl > 30 mL/min) AND *Sequential Compression Device (SCD) Assessment and Plan Assessment and Plan Impression: Possible TIA. Was called a stroke alert by EMS possible psychogenic symptoms headaches - likely migraines asthma cervical cancer - s/p surgery, no chemo no radiation anxiety/depression hospitalization in 03/21 with similar symptoms except with right sided symptoms - workup negative Plan: Patient's case was discussed with neurologist on-call by ER physician. Per neurology, MRIs and MRA studies were done. Personally reviewed all imaging studies including MRI of the brain, MRA of the brain. No evidence of acute infarct/edema/mass. Cervical spine MRI reviewed- Patient is explained of the above studies. Start patient on toradol for headaches control Resume home meds once the medications are known from her mother. Patient's prior hospitalization reviewed. Echocardiogram and carotid sono reports reviewed. DVT prophylaxis with SCD. This patient could be likely discharged today if okay with neurologist Discussed Condition With patient, ER MD, nursing staff Casey Iniguez MD Jun 17, 2017 05:11
[2017-06-17] MEDS ORDERED: KETOROLAC TROMETHAMINE 10 MG TAB PO PRN (05:15)
[2017-06-17 07:48] LABS: CHOLESTEROL/ HDL RATIO 3.75 RATIO; HDL CHOLESTEROL 44.8 MG/DL (40.0-60.0)
--- NOTE | 2017-06-17 10:13 | HHI.PR ---
Subjective Remarks Follow up for headache, right facial droop. The patient reports her headache has improved, now only located in the occipital region, rated 5/10. Denies any photophobia, blurred/double vision, or nausea/vomiting. She says her speech has improved but still having occasional slurred speech. She still believes she has right facial droop but denies any numbness or tingling. Denies any unilateral extremity numbness or weakness. Denies any other medical complaints including no fevers/chills, lightheadedness, dizziness, chest pain, palpitations, shortness of breath, abdominal pain, diarrhea, or urinary complaints. Objective Vitals Vital Signs Date Time Temp Pulse Resp B/P (MAP) Pulse Ox O2 Delivery O2 Flow Rate FiO2 06/17/17 08:00 97.1 70 18 105/56 (72) 98 06/17/17 05:43 98.1 70 18 99/56 (70) 99 06/17/17 05:33 68 06/17/17 01:12 98.1 72 18 95/59 (71) 98 06/16/17 20:57 98.2 64 20 92/65 (74) 99 06/16/17 20:51 06/16/17 17:13 70 22 100 Room Air 06/16/17 17:12 18 100 Room Air 06/16/17 17:10 98.5 72 18 152/62 (92) 99 Room Air Result Diagram: 06/16/17 1705 06/16/17 1705 Imaging Last Impressions Head CT 06/16/17 1700 Signed Impressions: Service Date/Time: June 17:14 - CONCLUSION: Negative noncontrast head CT with no evidence of hemorrhage or acute infarction. Kailash Borges MD Chest X-Ray 06/16/17 1700 Signed Impressions: Service Date/Time: June 17:15 - CONCLUSION: No acute disease. Kailash Borges MD Head Magnetic Resonance Angiography 06/16/17 0000 Signed Impressions: Service Date/Time: June 20:01 - CONCLUSION: Normal MRA of the brain. Elian Monroy MD Cervical Spine MRI 06/16/17 0000 Signed Impressions: Service Date/Time: June 20:01 - CONCLUSION: Normal MRI of the cervical spine. Elian Monroy MD Brain MRI 06/16/17 0000 Signed Impressions: Service Date/Time: June 20:01 - CONCLUSION: Normal noncontrast MRI of the brain. Elian Monroy MD Objective Remarks GENERAL: Well-nourished, well-developed middle aged AA female patient in NAD. SKIN: Warm and dry. No rash. HEENT: Normocephalic. Atraumatic. Pupils equal and round. Mucous membranes pink and moist. NECK: Supple. Trachea midline. CARDIOVASCULAR: Regular rate and rhythm. S1, S2 noted. No murmur appreciated. RESPIRATORY: No accessory muscle use. Clear to auscultation. Breath sounds equal bilaterally. GASTROINTESTINAL: Abdomen soft, non-tender, nondistended. Normoactive bowel sounds x4. MUSCULOSKELETAL: No obvious deformities. Extremities without clubbing, cyanosis , or edema. NEUROLOGICAL: Awake and alert. No obvious cranial nerve deficits. Motor grossly within normal limits. 5/5 muscle strength in bilateral upper and lower extremities. Normal but forced speech, only one episode of slurred speech when patient trying to say the word "slurred", however rest of the conversation unremarkable. Bilateral facial, upper, and lower extremity sensation equal and intact. Asymmetrical brow raise with some flattening on the right, however then she is able to close eyes tightly bilaterally, facial exam very inconsistent. Asymmetric smile with flattening of right nasolabial fold however no tongue deviation. It is noted that with distraction throughout conversation, the patient does not demonstrate right facial droop or any speech deficit. Medications and IVs Current Medications Medications (Trade) Dose Ordered Sig/Carmen Route Start Time Stop Time Status Last Admin (NS Flush) 2 ml BID IV FLUSH 06/16/17 21:00 (NS Flush) 2 ml UNSCH PRN IV FLUSH 06/16/17 19:45 (D50w (Vial) Inj) 50 ml UNSCH PRN IV PUSH 06/16/17 19:45 (Glucagon Inj) 1 mg UNSCH PRN OTHER 06/16/17 19:45 (Toradol) 10 mg Q6H PRN PO 06/17/17 05:15 06/22/17 05:14 A/P Problem List: (1) Headache ICD Code: R51 - Headache (2) TIA (transient ischemic attack) ICD Code: G45.9 - Transient cerebral ischemic attack, unspecified Status: Acute Assessment and Plan 46-year-old female with history of asthma, cervical cancer s/p resection (no chemo/radiation), anxiety, depression, presents with a 3 day history of headache and now right facial droop. Of note, patient had hospitalization in for similar complaints with negative work up. Possible TIA: presented as stroke alert via EMS. Rule out TIA/CVA. Possible psychogenic symptoms vs complicated migraine. Exam very inconsistent with no obvious focal deficit. -Head CT, Brain MRI/MRA, and C-Spine MRI images reviewed, all unremarkable -Monitor neuro checks, NIHSS -Consult PT/OT/ST -Consult neurology for further recommendations Headaches: patient reports recurrently headaches, lately almost every day. Not associated with photophobia or nausea/vomiting. -IV Toradol prn headache -headache improving today Asthma: chronic, not in exacerbation -continue to monitor Anxiety/Depression: chronic -awaiting RN to update med rec DVT Prophylaxis: teds/SCDs Discharge Planning 1250hrs: Discussed with neurologist Dr. Madrid. Possibly hemiplegic migraine, now resolved. Cleared for discharge from neurology standpoint. Recommended tylenol or ibuprofen for headache relief, and follow up with neurologist Dr. Vance. Will discharge home. Discharge patient to home Condition on discharge: Improved Regular Diet as tolerated Ad Alayna activity Rx written: ibuprofen 400mg q6h prn headache Follow-up with primary care physician and neurologist Dr. Vance Attending Statement patient was seen and examined today. presented with headache. imaging studies as noted above. neurology consulted. rest of assessment and plan as noted above. Problem Qualifiers (1) TIA (transient ischemic attack): Qualified Codes: G45.9 - Transient cerebral ischemic attack, unspecified Keysha Manning PA-C Jun 17, 2017 10:13 Sourav Angeol MD Jun 17, 2017 13:34
[2017-06-17] MEDS: SODIUM CHLORIDE 0.9% FLUSH 10 ML FLUSH IV FLUSH SCH (11:47)
[2017-06-17] MEDS ORDERED: TRAZ50TA12 PO (11:58)
[2017-06-17] MEDS ORDERED: SERT-129 PO (11:58)
[2017-06-17] MEDS ORDERED: BUSP15TA PO (11:58)
[2017-06-17] MEDS ORDERED: TRAZ1TAB14 PO (12:12)
[2017-06-17] MEDS ORDERED: DIVA500T3 PO ×2 (12:14)
[2017-06-17] MEDS ORDERED: IBUP1TAB5 PO (12:53)
--- NOTE | 2017-06-17 12:58 | HHI.DCPOC ---
Discharge Care Plan Diagnosis: (1) Hemiplegic migraine (2) Headache Goals to Promote Your Health * To prevent worsening of your condition and complications * To maintain your health at the optimal level Directions to Meet Your Goals Take your medications as prescribed Follow your dietary instruction Follow activity as directed Keep your appointments as scheduled Take your immunizations and boosters as scheduled If your symptoms worsen call your PCP, if no PCP go to Urgent Care Center or Emergency Room Smoking is Dangerous to Your Health. Avoid second hand smoke Call the 24-hour hour crisis hotline for domestic abuse at Keysha Manning PA-C Jun 17, 2017 12:58
--- NOTE | 2017-06-17 14:31 | MB ---
cc: RAVEN MULTANI MD DATE OF CONSULTATION 06/17/2017 REASON FOR CONSULTATION Possible TIA. HISTORY OF PRESENT ILLNESS Ms. Theodore Cruz is a 46-year-old -Citizen Of [place] female who reported three days ago she was having severe headaches, mainly on the left side of her face, and she endorses trouble speaking which she states whenever her headache hurts. She states that she had a previous headache with right-sided weakness previously and a previous hospitalization. Dr. Vance of neurology saw her and he recommended aspirin. All her work-up neurologic work-up was negative. She occasionally had facial grimaces and eyelid flutter during the encounter. When I saw her the patient states that she is back to her normal self, no more weakness or facial droop. As per the PA who provided much of the history the patient was having facial weakness which was inconsistent and abnormal neurologic exam which was also inconsistent. The patient states that she has those headaches. She denies these are migraine headaches and does not follow up with a neurologist. REVIEW OF SYSTEMS A 12-point review of systems is negative except for what is stated in the HPI. PAST MEDICAL HISTORY 1. Asthma. 2. Cervical cancer, status post surgery. 3. Anxiety. 4. Depression. 5. Previous headache followed by weakness with negative neurologic investigation. PAST SURGICAL HISTORY 1. Cervical cancer surgery. 2. section. ALLERGIES PENICILLIN. FAMILY HISTORY Diabetes mellitus and hypertension in mother. SOCIAL HISTORY Smokes 6-7 cigarettes a day and marijuana occasionally. Denies alcohol. PHYSICAL EXAMINATION GENERAL: Awake, alert, oriented, overweight, good historian. HEENT: Atraumatic, normocephalic. Intact hearing. Intact vision. Occasional orofacial spasm with eye fluttering, mainly on the right side. NECK: Supple. No signs of meningeal irritation. HEART: Regular rate and rhythm. LUNGS: Clear to auscultation. ABDOMEN: Soft abdomen. Not tender. EXTREMITIES: No clubbing, cyanosis or edema. NEUROLOGIC: Awake, alert, oriented to time, person and place. No dysarthria. No dysphasia. Intermittent right ocular facial dyskinetic movements. No nystagmus. No ptosis. No facial asymmetry. Motor exam is 5/5 bilateral and symmetrical. No abnormal movement. Normal tone. Reflexes 2+ bilateral symmetrical. Plantars are bilaterally downgoing. PSYCHIATRIC: Normal mood and behavior. No hallucinations. LABORATORY DATA White blood cell count 9.8, hemoglobin 10.2, platelet count 427. BUN 10, creatinine 0.78, sodium 140, potassium 3.8. IMAGING - Head CT scan: Negative noncontrast. No evidence of hemorrhage or acute infarction. - Head MRA: Normal. - Cervical spine MRI: Normal. - Brain MRA: Normal. DIAGNOSTIC IMPRESSION 1. Possible hemiplegic migraine given the history of previous episode of severe headache followed by weakness. 2. Negative neurologic investigation. 3. Anxiety and depression. 4. Acute facial dyskinetic movements. PLAN - Neurological examination is nonfocal and neurological investigation did not show any acute intracranial abnormality. - The patient needs to follow-up with outpatient neurology, avoid ergotamine. - For her hemiplegic migraine can be on nonsteroidal anti-inflammatory and for prevention can be on lamotrigine. - Follow-up with outpatient neurology, Dr. Vance. - No need for further neurologic investigation. I discussed the case with the PA, Katherinerupert Manning. We agree on the plan. Thank you for the opportunity to participate in the care of your patient. MD CHARLES Epstein/MALINI /1:26 PM /2:05 PM MTDJosiah
[2017-06-17 16:01] LABS: HEMOGLOBIN A1C 5.7 % (4.3-6.0)
--- NOTE | 2017-06-17 16:45 | EKG ---
Date Performed: 06/16/2017 Time Performed: 17:17:25 PTAGE: 46 years EKG: Sinus rhythm NORMAL ECG PREVIOUS TRACING : 03/11/2016 14.59 Since previous tracing, no significant change noted DOCTOR: Jason Chicas Interpretating Date/Time 06/17/2017 16:45:44
== END 2017-06-17 18:41 | disposition home or self-care (01) ==
LOC: NEPE 16:52 → NEDA 19:44 → UNDOADMOB 19:44 → NEDA 20:42 → NEPGCP 20:42
PROVIDERS: ADMIT Internal Medicine; ATTEND Internal Medicine
DX: G43.409 Hemiplegic migraine, not intractable, without status migrainosus (principal); C53.9 Malignant neoplasm of cervix uteri, unspecified; J45.909 Unspecified asthma, uncomplicated; F41.9 Anxiety disorder, unspecified; Z72.0 Tobacco use; R82.99 Other abnormal findings in urine
CPT/HCPCS: 70450; 70544; 70551; 71045; 72141; 80048; 80061; 80164; 80307; 81001; 82550; 83036; 84484; 85025; 85610; 87086; 92523; 93005; 96374; 97161; 97165; 99285; G0378; G8987; G8988; G8989; G8999; G9158; G9186; J2060

== ENCOUNTER 2017-08-14 21:00 | Emergency (ER) | payer OTHER ==
[~2017-08-14] VITALS: Ht 160 cm; Wt 85.0 kg
[~2017-08-14 21:00] MED LIST changes: +BUSP15TA PO; +BUSP5TAB PO; -CIPR500T2 PO; +DIVA500T3 PO; -HYDR-3533 PO; +IBUP1TAB5 PO; -METR-1 PO; +SERT-129 PO; +TRAZ1TAB14 PO; -ZOFR4TAB PO
[2017-08-14 21:15] VITALS: BP 126/65; PULSE 95; RESP 18; TEMP 99.2; O2SAT 99
[2017-08-14] MEDS ORDERED: BACT800T5 PO (22:25)
[2017-08-14] MEDS ORDERED: IBUP-232 PO (22:25)
[2017-08-14] MEDS ORDERED: CLIN150C14 PO (22:25)
--- NOTE | 2017-08-14 22:25 | PD ---
HPI Chief Complaint: Skin Problem Time Seen by Provider: 22:19 Travel History International Travel<30 days: No Contact w/Intl Traveler<30days: No Traveled to known affect area: No History of Present Illness HPI 46-year-old female complains of pain and swelling redness left lower quadrant abdominal wall. Patient states that his symptoms started several days ago. Patient states that she noticed a pimple on the left lower quadrant abdominal wall. Patient states that she squeezed on it and a small amount of pus came out. Patient stated that she has increasing pain and swelling and redness since then. Patient denies any fever chills. Patient states that she is up-to- date with TD booster. PFSH Past Medical History Asthma: Yes Blood Disorders: No Bipolar Disorder: Yes Cancer: Yes Cardiovascular Problems: No Chemotherapy: No Diabetes: No Diminished Hearing: No Endocrine: No Gastrointestinal Disorders: No Genitourinary: No Immune Disorder: No Implanted Vascular Access Dvce: No Musculoskeletal: Yes Neurologic: Yes Psychiatric: No Reproductive: No Respiratory: No Immunizations Current: Yes Radiation Therapy: No Seizures: Yes Thyroid Disease: No ?: Not Menopausal: No : 5 Para: 5 Tubal Ligation: Yes Past Surgical History Section: Yes (X 1) Social History Alcohol Use: No Tobacco Use: Yes (1/2PPD) Substance Use: Yes (MARIJUANA) Allergies-Medications (Allergen,Severity, Reaction): Coded Allergies: penicillin G (Unverified Allergy, Intermediate, Itching, 08/14/17) Reported Meds & Prescriptions Reported Meds & Active Scripts Active Ibuprofen 400 Mg Tab 400 Mg PO Q6H PRN Reported Divalproex ER (Divalproex Sodium) 500 Mg Tab 1,000 Mg PO HS Divalproex ER (Divalproex Sodium) 500 Mg Tab 500 Mg PO AC BREAKFAST Trazodone (Trazodone HCl) 150 Mg Tablet 150 Mg PO HS Sertraline (Sertraline HCl) 100 Mg Tab 100 Mg PO DAILY Buspirone (Buspirone HCl) 15 Mg Tab 15 Mg PO TID Buspirone (Buspirone HCl) 5 Mg Tab 5 Mg PO BID Review of Systems General / Constitutional: No: Fever Eyes: No: Visual changes HENT: No: Headaches Cardiovascular: No: Chest Pain or Discomfort Respiratory: No: Shortness of Breath Gastrointestinal: No: Abdominal Pain Genitourinary: No: Dysuria Musculoskeletal: No: Pain Skin: No Rash Neurologic: No: Weakness Psychiatric: No: Depression Endocrine: No: Polydipsia Hematologic/Lymphatic: No: Easy Bruising Physical Exam Narrative GENERAL: Well-nourished, well-developed patient. SKIN: Focused skin assessment warm/dry. HEAD: Normocephalic. EYES: No scleral icterus. No injection or drainage. NECK: Supple, trachea midline. No JVD or lymphadenopathy. CARDIOVASCULAR: Regular rate and rhythm without murmurs, gallops, or rubs. RESPIRATORY: Breath sounds equal bilaterally. No accessory muscle use. GASTROINTESTINAL: Abdomen soft, non-tender, nondistended. MUSCULOSKELETAL: No cyanosis, or edema. BACK: Nontender without obvious deformity. No CVA tenderness. Patient has a small papular lesion on left lower quadrant abdominal wall with redness swelling tenderness associate with that. No induration. No discharge. Data Data Last Documented VS Vital Signs Date Time Temp Pulse Resp B/P (MAP) Pulse Ox O2 Delivery O2 Flow Rate FiO2 08/14/17 21:15 99.2 95 18 126/65 (85) 99 Orders Orders Sulfamet-Trimeth Ds 800-160 Mg (Bactrim (08/14/17 22:30) Clindamycin (Cleocin) (08/14/17 22:30) [facility] Medical Decision Making Medical Screen Exam Complete: Yes Emergency Medical Condition: Yes Differential Diagnosis Differential diagnosis including folliculitis, cellulitis, abscess. Narrative Course 46-year-old female with redness swelling tenderness left lower quadrant abdominal wall. Clindamycin 300 mg p.o. given. Bactrim DS 1 tablet p.o. given. Diagnosis Primary Impression: Cellulitis Qualified Codes: L03.311 - Cellulitis of abdominal wall Patient Instructions: General Instructions Additional Instructions: Take medications as directed. Moist warm compress. Return in 2 days for recheck. Med/Other Pt SpecificInfo: Prescription(s) given Scripts Ibuprofen (Ibuprofen) 600 Mg Tab 600 MG PO TID for Pain, #30 TAB 0 Refills Prov: Moose Guevara MD 08/14/17 Clindamycin (Clindamycin) 150 Mg Cap 300 MG PO QID for Infection, #80 CAP 0 Refills Prov: Moose Guevara MD 08/14/17 Sulfamethoxazole-Trimethoprim (Bactrim DS) 800-160 Mg Tab 1 TAB PO BID for Infection, #20 TAB 0 Refills Prov: Moose Guevara MD 08/14/17 Disposition: 01 DISCHARGE HOME Condition: Stable Moose Guevara MD Aug 14, 2017 22:25
[2017-08-14] MEDS ORDERED: SULFAMETHOXAZOLE-TRIMETHOPRIM DS 800-160 MG TAB PO ONE (22:30)
[2017-08-14] MEDS ORDERED: CLINDAMYCIN 150 MG CAP PO ONE (22:30)
== END 2017-08-14 22:46 | disposition home or self-care (01) ==
LOC: NEPD 21:00
DX: L03.311 Cellulitis of abdominal wall (principal); F17.200 Nicotine dependence, unspecified, uncomplicated; F12.90 Cannabis use, unspecified, uncomplicated
CPT/HCPCS: 99283

== ENCOUNTER 2017-08-22 16:46 | Emergency (ER) | payer OTHER ==
[~2017-08-22 16:46] MED LIST changes: +BACT800T5 PO; +CLIN150C14 PO; +IBUP-232 PO
[2017-08-22] MEDS ORDERED: IOHEXOL 350 MG/ML 10 ML VIAL (for RAD DIAG) IVCONTRAST ONE (16:47)
[2017-08-22 16:54] VITALS: BP 114/56; PULSE 82; RESP 16; TEMP 98.8; O2SAT 100
--- NOTE | 2017-08-22 17:17 | RADRPT ---
EXAM DATE/TIME: 08/22/2017 17:06 [facility] COMPARISON: No previous studies available for comparison. INDICATIONS : Chest pain, fever MEDICAL HISTORY : Seizures. Cervical cancer. Uterine cancer. SURGICAL HISTORY : section. Tubal ligation. Cervix ENCOUNTER: Initial ACUITY: 4 - 6 days PAIN SCORE: 0/10 LOCATION: chest FINDINGS: PA and lateral views of the chest demonstrate the lungs to be symmetrically aerated without evidence of mass, infiltrate or effusion. The cardiomediastinal contours are unremarkable. Osseous structure s are intact. CONCLUSION: No acute disease. Kumar Contreras MD FACR on August 22, 2017 at 17:14 Board Certified Radiologist. This report was verified electronically.
[2017-08-22 18:25] LABS: AUTOMATED NEUTROPHIL # 3.6 TH/MM3 (1.8-7.7); BASOPHIL # 0.1 TH/MM3 (0-0.2); BASOPHIL % 1.5 % (0.0-2.0); EOSINOPHIL # 0.1 TH/MM3 (0-0.4); EOSINOPHIL % 1.5 % (0.0-4.0); HEMATOCRIT 33.8 % (35.0-46.0); HEMOGLOBIN 10.6 GM/DL (11.6-15.3); LYMPH % 44.9 % (9.0-44.0); LYMPHOCYTE # 3.6 TH/MM3 (1.0-4.8); MEAN CELL VOLUME 72.4 FL (80.0-100.0); MEAN CORPUSCULAR HEMOGLOBIN 22.7 PG (27.0-34.0); MEAN CORPUSCULAR HGB CONC 31.3 % (32.0-36.0); MEAN PLATELET VOLUME 7.2 FL (7.0-11.0); MONO % 6.3 % (0.0-8.0); MONOCYTE # 0.5 TH/MM3 (0-0.9); NEUT % 45.8 % (16.0-70.0); PLATELET COUNT 537 TH/MM3 (150-450); RED BLOOD COUNT 4.67 MIL/MM3 (4.00-5.30); RED CELL DISTRIBUTION WIDTH 18.1 % (11.6-17.2); WHITE BLOOD COUNT 7.9 TH/MM3 (4.0-11.0)
[2017-08-22 18:40] LABS: INTERNATIONAL NORMALIZED RATIO 1.1 RATIO; PROTHROMBIN TIME - PATIENT 10.7 SEC (9.8-11.6)
[2017-08-22 18:41] LABS: BILIRUBIN, URINE NEG (NEG); BLOOD, URINE SMALL (NEG); GLUCOSE,URINE NEG (NEG); KETONE, URINE NEG (NEG); MUCUS URINE MANY /lpf (OCC); NITRITE,URINE NEG (NEG); SQUAMOUS EPITHELIAL CELL URINE 11 /hpf (0-5); URINE COLOR YELLOW (YELLW/STRAW); URINE LEUKOCYTE ESTERASE NEG (NEG)
[2017-08-22 18:50] LABS: ALBUMIN 3.5 GM/DL (3.4-5.0); AST (GOT) 13 U/L (15-37); BICARBONATE 22.8 MEQ/L (21.0-32.0); BLOOD UREA NITROGEN 10 MG/DL (7-18); CALCIUM 9.1 MG/DL (8.5-10.1); CHLORIDE 108 MEQ/L (98-107); GLOMERULAR FILTRATION RATE 109 ML/MIN (>89); GLUCOSE,RANDOM 83 MG/DL (74-106); SODIUM (NA) 141 MEQ/L (136-145)
[2017-08-22 18:53] LABS: ALKALINE PHOSPHATASE 84 U/L (45-117); ALT (GPT) 19 U/L (10-53); TOTAL BILIRUBIN ADULT 0.3 MG/DL (0.2-1.0)
[2017-08-22] MEDS ORDERED: PANTOPRAZOLE SODIUM 40 MG VIAL IVP ONE (19:15)
[2017-08-22] MEDS ORDERED: LIDOCAINE VISCOUS 2% SOLN 15 ML UDC PO ONE (19:15)
[2017-08-22] MEDS ORDERED: SODIUM CHLOR 0.9% 1000 ML INJ 1,000 ML IV SCH (19:15)
[2017-08-22] MEDS ORDERED: ALUMINUM/MAGNESIUM/SIMETH 30 ML CUP PO ONE (19:15)
[2017-08-22] MEDS ORDERED: ONDANSETRON HCL 4 MG/2 ML VIAL IVP ONE (19:15)
--- NOTE | 2017-08-22 19:19 | PD ---
HPI Chief Complaint: Abdominal Pain Time Seen by Provider: 19:09 Travel History International Travel<30 days: No Contact w/Intl Traveler<30days: No Traveled to known affect area: No History of Present Illness HPI 46-year-old female presents for evaluation of vomiting, nausea, vomiting, cough. She reports that she was seen here on August 14 for evaluation of cellulitis and left lower abdominal wall. She was prescribed Bactrim, clindamycin, ibuprofen. She reports shortly thereafter she developed nausea, vomiting. She reports approximately 3 episodes of vomiting a day, particularly after meals, with associated left-sided upper and lower abdominal pain. Pain is an aching pain which is constant and worse with palpation. She is also had a mild cough for the past few weeks and today she developed some right-sided sharp chest pain which is worse when coughing or when vomiting. She denies fevers, chills, diarrhea, dysuria, flank pain. She reports a history of tubal ligation and . She is also had diverticulitis in the past. No other complaints at this time. PFSH Past Medical History Asthma: Yes Blood Disorders: No Bipolar Disorder: Yes Cancer: Yes Cardiovascular Problems: No Chemotherapy: No Diabetes: No Diminished Hearing: No Endocrine: No Gastrointestinal Disorders: No Genitourinary: No Immune Disorder: No Implanted Vascular Access Dvce: No Musculoskeletal: Yes Neurologic: Yes Psychiatric: No Reproductive: No Respiratory: No Immunizations Current: Yes Radiation Therapy: No Seizures: Yes Thyroid Disease: No Menopausal: No : 5 Para: 5 Tubal Ligation: Yes Past Surgical History Section: Yes (X 1) Social History Alcohol Use: No Tobacco Use: Yes (1/2PPD) Substance Use: Yes (MARIJUANA) Allergies-Medications (Allergen,Severity, Reaction): Coded Allergies: penicillin G (Unverified Allergy, Intermediate, Itching, 08/14/17) Reported Meds & Prescriptions Reported Meds & Active Scripts Active Zofran (Ondansetron HCl) 4 Mg Tab 4 Mg PO Q6HR PRN Ibuprofen 600 Mg Tab 600 Mg PO TID Clindamycin (Clindamycin HCl) 150 Mg Cap 300 Mg PO QID Bactrim DS (Sulfamethoxazole-Trimethoprim) 800-160 Mg Tab 1 Tab PO BID Ibuprofen 400 Mg Tab 400 Mg PO Q6H PRN Reported Divalproex ER (Divalproex Sodium) 500 Mg Tab 1,000 Mg PO HS Divalproex ER (Divalproex Sodium) 500 Mg Tab 500 Mg PO AC BREAKFAST Trazodone (Trazodone HCl) 150 Mg Tablet 150 Mg PO HS Sertraline (Sertraline HCl) 100 Mg Tab 100 Mg PO DAILY Buspirone (Buspirone HCl) 15 Mg Tab 15 Mg PO TID Buspirone (Buspirone HCl) 5 Mg Tab 5 Mg PO BID Review of Systems Except as stated in HPI: all other systems reviewed are Neg Physical Exam Narrative GENERAL: Well-developed well-nourished female no acute distress SKIN: Warm and dry. There is a small area of induration on the left lower abdominal wall which is significantly improved from her previous visit according to the patient. HEAD: Atraumatic. Normocephalic. EYES: Pupils equal and round. No scleral icterus. No injection or drainage. ENT: No nasal bleeding or discharge. Mucous membranes pink and moist. NECK: Trachea midline. No JVD. CARDIOVASCULAR: Regular rate and rhythm. No murmur appreciated. RESPIRATORY: No accessory muscle use. Clear to auscultation. Breath sounds equal bilaterally. GASTROINTESTINAL: Abdomen soft, tenderness to palpation in left upper and lower quadrants without guarding. There is no CVA tenderness. MUSCULOSKELETAL: No obvious deformities. There is reproducible right sided upper chest wall tenderness to palpation. There is no lower extremity edema. NEUROLOGICAL: Awake and alert. No obvious cranial nerve deficits. Motor grossly within normal limits. Normal speech. PSYCHIATRIC: Appropriate mood and affect; insight and judgment normal. Data Data Last Documented VS Vital Signs Date Time Temp Pulse Resp B/P (MAP) Pulse Ox O2 Delivery O2 Flow Rate FiO2 08/22/17 16:54 98.8 82 16 114/56 (75) 100 Orders Orders Complete Blood Count With Diff (08/22/17 16:56) Comprehensive Metabolic Panel (08/22/17 16:56) Lipase (08/22/17 16:56) Prothrombin Time / Inr (Pt) (08/22/17 16:56) Act Partial Throm Time (Ptt) (08/22/17 16:56) Urinalysis - C+S If Indicated (08/22/17 16:56) Chest, Pa & Lat (08/22/17 ) Ed Urine Pregnancytest Poc (08/22/17 19:15) Ondansetron Inj (Zofran Inj) (08/22/17 19:15) Pantoprazole Inj (Protonix Inj) (08/22/17 19:15) Sodium Chlor 0.9% 1000 Ml Inj (Ns 1000 M (08/22/17 19:15) Al-Mag Hy-Si 40-40-4 Mg/Ml Liq (Mag-Al P (08/22/17 19:15) Lidocaine 2% Viscous (Xylocaine 2% Visco (08/22/17 19:15) Ct Abd/Pel W Iv Contrast(Rout) (08/22/17 19:15) Electrocardiogram (08/22/17 ) Iohexol 350 Inj (Omnipaque 350 Inj) (08/22/17 16:47) Ed Discharge Order (08/22/17 21:06) Labs Laboratory Tests Test 08/22/17 18:00 08/22/17 18:02 Urine Color YELLOW Urine Turbidity CLEAR Urine pH 6.0 Urine Specific [place] 1.030 Urine Protein TRACE mg/dL Urine Glucose (UA) NEG mg/dL Urine Ketones NEG mg/dL Urine Occult Blood SMALL Urine Nitrite NEG Urine Bilirubin NEG Urine Urobilinogen LESS THAN 2.0 MG/DL Urine Leukocyte Esterase NEG Urine RBC 1 /hpf Urine WBC 1 /hpf Urine Squamous Epithelial Cells 11 /hpf Urine Mucus MANY /lpf Microscopic Urinalysis Comment CULT NOT INDICATED White Blood Count 7.9 TH/MM3 Red Blood Count 4.67 MIL/MM3 Hemoglobin 10.6 GM/DL Hematocrit 33.8 % Mean Corpuscular Volume 72.4 FL Mean Corpuscular Hemoglobin 22.7 PG Mean Corpuscular Hemoglobin Concent 31.3 % Red Cell Distribution Width 18.1 % Platelet Count 537 TH/MM3 Mean Platelet Volume 7.2 FL Neutrophils (%) (Auto) 45.8 % Lymphocytes (%) (Auto) 44.9 % Monocytes (%) (Auto) 6.3 % Eosinophils (%) (Auto) 1.5 % Basophils (%) (Auto) 1.5 % Neutrophils # (Auto) 3.6 TH/MM3 Lymphocytes # (Auto) 3.6 TH/MM3 Monocytes # (Auto) 0.5 TH/MM3 Eosinophils # (Auto) 0.1 TH/MM3 Basophils # (Auto) 0.1 TH/MM3 CBC Comment DIFF FINAL Differential Comment Prothrombin Time 10.7 SEC Prothromb Time International Ratio 1.1 RATIO Activated Partial Thromboplast Time 28.7 SEC Blood Urea Nitrogen 10 MG/DL Creatinine 0.70 MG/DL Random Glucose 83 MG/DL Total Protein 8.0 GM/DL Albumin 3.5 GM/DL Calcium Level 9.1 MG/DL Alkaline Phosphatase 84 U/L Aspartate Amino Transf (AST/SGOT) 13 U/L Alanine Aminotransferase (ALT/SGPT) 19 U/L Total Bilirubin 0.3 MG/DL Sodium Level 141 MEQ/L Potassium Level 3.7 MEQ/L Chloride Level 108 MEQ/L Carbon Dioxide Level 22.8 MEQ/L Anion Gap 10 MEQ/L Estimat Glomerular Filtration Rate 109 ML/MIN Lipase 178 U/L MDM Medical Decision Making Medical Screen Exam Complete: Yes Emergency Medical Condition: Yes Medical Record Reviewed: Yes Differential Diagnosis Adverse reaction to antibiotics versus gastritis versus diverticulitis versus gastroenteritis versus pancreatitis versus less likely obstruction Narrative Course 46-year-old female with left-sided abdominal pain, nausea and vomiting started shortly after being prescribed clindamycin, Bactrim and ibuprofen on August 14 for cellulitis. On examination she has tenderness to palpation left upper and lower quadrants. She does have a history of diverticulitis. In addition she has had right-sided chest pain since this morning which is sharp and worse with palpation and movement and inspiration. On examination his pain is reproducible with palpation of her chest wall. I do not suspect cardiac etiology for this pain. She has had a cough for the past 2 weeks and her pain appears musculoskeletal. Pulmonary embolism was considered as well however seems highly unlikely. The patient will be given IV fluids, Protonix, Zofran, GI cocktail. Her lab work is been reviewed. Her hemoglobin is 10.6 which is consistent with her baseline anemia. CMP and urinalysis are unremarkable. Chest x-ray is unremarkable. CT abdomen and pelvis reveals CONCLUSION: 1. Uterine fibroids, largest measuring up to 6.5 cm in diameter. 2. 2.2 cm left adnexal cyst. 3. Tiny hepatic cysts similar to prior examination. 4. No acute findings within the abdomen or pelvis. Upon recheck the patient feels significantly improved, in fact her symptoms have resolved. Recommended cessation of the ibuprofen, clindamycin and Bactrim. She will be discharged with a short course of Zofran. Diagnosis Primary Impression: Nausea and vomiting Additional Instructions: Medication as needed for nausea. Slowly advance diet as tolerated. Follow-up closely with primary care physician in 2-3 days. Return for any emergent medical conditions. Med/Other Pt SpecificInfo: Prescription(s) given Scripts Ondansetron (Zofran) 4 Mg Tab 4 MG PO Q6HR Y for NAUSEA OR VOMITING, #20 TAB 0 Refills Prov: Jayjay Muñiz MD 08/22/17 Disposition: 01 DISCHARGE HOME Condition: Stable Dk Atkins Aug 22, 2017 19:19
--- NOTE | 2017-08-22 20:53 | RADRPT ---
EXAM DATE/TIME: 08/22/2017 20:13 [facility] COMPARISON: No previous studies available for comparison. INDICATIONS : Epigastric pain with nausea and vomiting. IV CONTRAST: 95 cc Omnipaque 350 (iohexol) IV ORAL CONTRAST: No oral contrast ingested. RADIATION DOSE: 16.29 CTDIvol (mGy) MEDICAL HISTORY : Seizures. Asthma Cervical cancer SURGICAL HISTORY : Tubal ligation. section. ENCOUNTER: Initial ACUITY: 1 week PAIN SCALE: 8/10 LOCATION: epigastric TECHNIQUE: Volumetric scanning of the abdomen and pelvis was performed. Using automated exposure control and ad justment of the mA and/or kV according to patient size, radiation dose was kept as low as reasonably achievable to obtain optimal diagnostic quality images. DICOM format image data is available electro nically for review and comparison. FINDINGS: Lung bases are clear. There acute findings in the spleen, adrenals, kidneys or pancreas. Tiny hepatic cysts present. No calcified gallstones. There is a 6.5 cm uterine fibroid. 2.2 cm left adnexal cyst. CONCLUSION: 1. Uterine fibroids, largest measuring up to 6.5 cm in diameter. 2. 2.2 cm left adnexal cyst. 3. Tiny hepatic cysts similar to prior examination. 4. No acute findings within the abdomen or pelvis. Luan Batista MD on August 22, 2017 at 20:45 Board Certified Radiologist. This report was verified electronically.
[2017-08-22] MEDS ORDERED: ZOFR4TAB PO (21:06)
--- NOTE | 2017-08-23 08:45 | EKG ---
Date Performed: 08/22/2017 Time Performed: 19:27:22 PTAGE: 46 years EKG: Sinus rhythm LOW QRS VOLTAGE IN PRECORDIAL LEADS BORDERLINE ECG PREVIOUS TRACING : 06/16/2017 17.17 No significant change from previous tracing noted. DOCTOR: Marcelino Caro Interpretating Date/Time 08/23/2017 08:35:10
== END 2017-08-22 21:54 | disposition home or self-care (01) ==
LOC: NED 16:46 → NEPD 21:54
DX: R11.2 Nausea with vomiting, unspecified (principal); R94.31 Abnormal electrocardiogram [ECG] [EKG]; D25.9 Leiomyoma of uterus, unspecified; J45.909 Unspecified asthma, uncomplicated; F31.9 Bipolar disorder, unspecified; F17.200 Nicotine dependence, unspecified, uncomplicated; F12.90 Cannabis use, unspecified, uncomplicated; Z85.41 Personal history of malignant neoplasm of cervix uteri
CPT/HCPCS: 71046; 74177; 80053; 81001; 83690; 84703; 85025; 85610; 85730; 93005; 96374; 96375; 99285; C9113; J2405; J7030; Q9967